=== PATIENT | female | born 1995 | race African-American/Black ===

== ENCOUNTER 2023-01-17 08:36 | Emergency (ER) | payer OTHER ==
[~2023-01-17] VITALS: Ht 160 cm; Wt 78.0 kg
== END 2023-01-17 11:57 | disposition home or self-care (01) ==
LOC: ER 08:36
DX: K29.70 Gastritis, unspecified, without bleeding (principal); R11.10 Vomiting, unspecified; Z91.018 Allergy to other foods

== ENCOUNTER 2023-04-26 15:21 | Emergency (ER) | payer OTHER ==
[~2023-04-26] VITALS: Ht 160 cm; Wt 72.6 kg
== END 2023-04-26 20:30 | disposition home or self-care (01) ==
LOC: ER 15:21
DX: I10 Essential (primary) hypertension (principal); Z91.018 Allergy to other foods

== ENCOUNTER 2024-10-19 10:35 | Emergency (ER) | payer OTHER ==
[~2024-10-19] VITALS: Ht 160 cm; Wt 77.1 kg
== END 2024-10-19 13:29 | disposition home or self-care (01) ==
LOC: ER 10:37
DX: R53.81 Other malaise (principal); R11.2 Nausea with vomiting, unspecified; Z91.018 Allergy to other foods

== ENCOUNTER → 2025-07-15 | Emergency (ER) | payer OTHER ==
[~2025-07-15] VITALS: Ht 160 cm; Wt 68.0 kg
[~2025-07-15] MED LIST: CEFTRIAXONE SODIUM 1,000 MG VIAL IM ONE; KETOROLAC TROMETHAMINE 60 MG VIAL IM ONE; PEPCID AC20 MG PO; ZITHROMAX500 MG PO
[2025-07-15 11:50] LABS: BASO % 0.3 % (0.1-1.2); EOS # 0.08 (0.04-0.54); EOS % 1.0 % (0.7-7.0); LYMPH # 1.48 (1.18-3.74); LYMPH % 19.3 % (19.3-53.1); MEAN PLATELET VOLUME 10.60 fl (9.4-12.4); MONO # 1.14 (0.24-0.82); NEUT # 4.95 (1.56-6.13); NEUT % 64.5 % (34.0-71.1); RED CELL DISTRIBUTION WIDTH 12.3 % (11.6-14.4)
[2025-07-15 11:53] LABS: MONO % 14.8 % (4.7-12.5)
[2025-07-15 12:59] LABS: COVID-19 AG NEGATIVE (NEGATIVE)
== END | disposition home or self-care (01) ==
LOC: ER 09:44
PROVIDERS: General Practice
DX: J02.9 Acute pharyngitis, unspecified (principal); R51.9 Headache, unspecified; R50.9 Fever, unspecified; Z20.822 Contact with and (suspected) exposure to COVID-19; Z91.018 Allergy to other foods